=== PATIENT | female | born 1970 | race Caucasian/White ===

== ENCOUNTER 2017-10-01 13:59 | Outpatient (CLI) | payer OTHER ==
--- NOTE | 2017-10-01 16:25 | MMO ---
BILATERAL DIGITAL SCREENING MAMMOGRAMS: HISTORY: This 47-year-old female presents for digital screening mammography. COMPARISON: 06/04/16, 07/28/14, 07/01/13. This patient's mammogram was interpreted with the assistance of computer-aided detection. The breasts are heterogeneously dense, which can obscure small masses. No direct or indirect evidence of malignancy. IMPRESSION: BI-RADS category 1, negative. Continued routine screening. BIRADS 1: Negative Routine annual screening mammography (for women over age 40) POS: [facility]
== END 2017-10-01 14:00 | disposition home or self-care (01) ==
LOC: SCSMAMMO 13:59
PROVIDERS: ATTEND Obstetrics & Gynecology
DX: Z12.31 Encounter for screening mammogram for malignant neoplasm of breast (principal)
CPT/HCPCS: 77067

== ENCOUNTER 2017-12-09 11:35 | Emergency (ER) | payer OTHER ==
--- NOTE | 2017-12-09 13:47 | RAD ---
3 VIEWS LEFT SHOULDER: Date: 12/09/17 COMPARISON: None. HISTORY: Left shoulder pain, injury, trauma. FINDINGS: No widening of the AC or CC interspace. No fracture or dislocation. IMPRESSION: No acute findings. POS: [facility]
== END 2017-12-09 12:50 | disposition home or self-care (01) ==
LOC: ERS 11:35
DX: M25.512 Pain in left shoulder (principal); E05.90 Thyrotoxicosis, unspecified without thyrotoxic crisis or storm; F41.9 Anxiety disorder, unspecified; Z87.891 Personal history of nicotine dependence; X50.9XXA Other and unspecified overexertion or strenuous movements or postures, initial encounter

== ENCOUNTER 2018-04-29 09:53 | Day surgery (SDC) | payer OTHER ==
[2018-04-28 11:57] VITALS: BMI 25.0
[2018-04-29] MEDS ORDERED: Midazolam HCl 2 mg/2 ml Vial ONE (11:00)
[2018-04-29] MEDS ORDERED: Lidocaine 1% PF 5 ML VIAL ONE (16:48)
[2018-04-29] MEDS ORDERED: PROPOFOL 200 MG/20 ML VIAL ONE (16:48)
--- NOTE | 2018-04-30 14:31 | OP ---
DATE OF PROCEDURE: 04/29/2018 PROCEDURE: EGD with gastric biopsy. PREPROCEDURE DIAGNOSES: Globus sensation and vague dysphagia. POSTPROCEDURE DIAGNOSES: 1. Mild gastritis. 2. Normal esophagus empiric dilatation performed with 54-[employer] dilator. ANESTHESIA: TIVA. PROCEDURE IN DETAIL: Once the patient was sedated, a bite block was placed in esophageal orifice. T he endoscope was advanced through the esophagus, stomach, and then second and third portion of duoden um. The esophagus showed no signs of esophagitis, inflammation, or eosinophilic esophagitis. Empiri c dilatation was performed with [address]-[employer] dilator. Second look showed no effect. in t he stomach, esophagus, and duodenum, which appeared normal except for mild gastritis. Biopsies were obtained to rule out H. pylori. The retroflexed views were normal. The scope was removed. Th e patient tolerated the procedure well and there were no complications.
== END 2018-04-29 13:25 | disposition home or self-care (01) ==
LOC: SDC 09:53
PROVIDERS: ATTEND Internal Medicine Gastroenterology
PROC: 0DB68ZX Excision of Stomach, Via Natural or Artificial Opening Endoscopic, Diagnostic (ICD-10-PCS; principal; 2018-04-29)
PROC: 0D757ZZ Dilation of Esophagus, Via Natural or Artificial Opening (ICD-10-PCS; principal; 2018-04-29)
DX: K29.50 Unspecified chronic gastritis without bleeding (principal); R13.10 Dysphagia, unspecified; K21.9 Gastro-esophageal reflux disease without esophagitis; F41.9 Anxiety disorder, unspecified; E05.00 Thyrotoxicosis with diffuse goiter without thyrotoxic crisis or storm; D89.89 Other specified disorders involving the immune mechanism, not elsewhere classified; Z87.891 Personal history of nicotine dependence; Z79.899 Other long term (current) drug therapy; Z88.1 Allergy status to other antibiotic agents
CPT/HCPCS: 88305; 88312; J2001; J2250; J2704

== ENCOUNTER 2019-04-09 13:18 | Emergency (ER) | payer OTHER ==
[2019-04-09 14:10] LABS: #Basophils 0.1 thou/uL (0.0-0.2); #Eosinphils 0.1 thou/uL (0.0-0.7); #Monocytes 0.5 thou/uL (0.11-0.59); #Neutrophils 4.8 thou/uL (1.40-6.50); %Basophils 1.2 % (0.0-1.0); %Eosinophils 2.3 % (0.0-10.0); %Lymphocytes 15.1 % (21.0-51.0); %Monocytes 7.9 % (0.0-10.0); %Neutrophils 73.5 % (42.0-75.0); Hemoglobin 13.9 g/dL (12.0-16.0); Mean Corpuscular HGB CONC 32.3 g/dL (32.0-36.0); Mean Corpuscular Volume 89.7 fL (78.0-98.0); Mean Platelet Volume 7.2 fL (7.4-10.4); Platelet Count 246 thou/uL (130-400); RBC Distribution Width 12.5 % (11.5-14.5); Red Blood Cell (RBC) Count 4.78 mill/uL (4.20-5.40); White Blood Cell (WBC) Count 6.5 thou/uL (4.8-10.8)
[2019-04-09 14:23] LABS: ALT (SGPT) 16 U/L (8-55); AST (SGOT) 19 U/L (5-34); Albumin 4.1 g/dL (3.5-5.0); Alkaline Phosphatase 44 U/L (40-110); Anion Gap 13 mmol/L (10-20); BUN (Urea Nitrogen) 15 mg/dL (7.0-18.7); Bilirubin, Total 0.6 mg/dL (0.2-1.2); Calc. Creatinine Clearance 0 mL/min (70-130); Calcium 9.1 mg/dL (7.8-10.44); Carbon Dioxide 25 mmol/L (22-29); Chloride 107 mmol/L (98-107); Estimated GFR-MDRD 74; Globulin 2.6 g/dL (2.4-3.5); Glucose 96 mg/dL (70-105); Protein, Total 6.7 g/dL (6.0-8.3); Sodium 141 mmol/L (136-145)
== END 2019-04-09 15:02 | disposition home or self-care (01) ==
LOC: SCSER 13:18
DX: F43.9 Reaction to severe stress, unspecified (principal); R07.9 Chest pain, unspecified; E05.90 Thyrotoxicosis, unspecified without thyrotoxic crisis or storm; F41.9 Anxiety disorder, unspecified; Z87.891 Personal history of nicotine dependence
CPT/HCPCS: 36415; 80053; 82550; 84484; 85025; 93005

== ENCOUNTER 2019-10-19 08:55 | Outpatient (CLI) | payer OTHER ==
--- NOTE | 2019-10-19 09:16 | RAD ---
EXAM: Two views chest PROVIDED CLINICAL HISTORY: Dyspnea COMPARISON: 12/16/2015 FINDINGS: Cardiac silhouette and pulmonary vasculature are within normal limits. The lungs are clear. The osse ous structures have a normal appearance. Surgical clips overlie the right upper quadrant. Chest is stable compared to prior exam. IMPRESSION: No acute cardiopulmonary process.
== END 2019-10-19 08:56 | disposition home or self-care (01) ==
LOC: RAD 08:55
PROVIDERS: ATTEND Internal Medicine Critical Care Medicine
DX: R06.00 Dyspnea, unspecified (principal)
CPT/HCPCS: 36415; 71046; 80053; 84443; 85025

== ENCOUNTER 2020-08-29 23:58 | Emergency (ER) | payer OTHER ==
[2020-08-30 02:12] LABS: #Eosinphils 0.1 thou/uL (0.0-0.7); #Monocytes 0.7 thou/uL (0.11-0.59); #Neutrophils 5.1 thou/uL (1.40-6.50); %Basophils 0.5 % (0.0-1.0); %Eosinophils 1.7 % (0.0-10.0); %Lymphocytes 14.3 % (21.0-51.0); %Monocytes 9.9 % (0.0-10.0); %Neutrophils 73.5 % (42.0-75.0); Hemoglobin 12.8 g/dL (12.0-16.0); Mean Corpuscular HGB CONC 32.7 g/dL (32.0-36.0); Mean Corpuscular Hemoglobin 29.5 pg (27.0-31.0); Mean Corpuscular Volume 90.1 fL (78.0-98.0); Platelet Count 234 thou/uL (130-400); RBC Distribution Width 13.1 % (11.5-14.5); Red Blood Cell (RBC) Count 4.35 mill/uL (4.20-5.40)
[2020-08-30 02:34] LABS: ALT (SGPT) 12 U/L (8-55); AST (SGOT) 15 U/L (5-34); Albumin 3.9 g/dL (3.5-5.0); Alkaline Phosphatase 47 U/L (40-110); Anion Gap 14 mmol/L (10-20); BUN (Urea Nitrogen) 17 mg/dL (7.0-18.7); Bilirubin, Total 0.4 mg/dL (0.2-1.2); Calc. Creatinine Clearance 0 mL/min (70-130); Calcium 8.5 mg/dL (7.8-10.44); Carbon Dioxide 21 mmol/L (22-29); Chloride 109 mmol/L (98-107); Globulin 2.6 g/dL (2.4-3.5); Glucose 101 mg/dL (70-105); Potassium 3.9 mmol/L (3.5-5.1); Protein, Total 6.5 g/dL (6.0-8.3); Sodium 140 mmol/L (136-145)
[2020-08-30 03:00] LABS: Thyroid Stimulating Hormone 8.4508 uIU/mL (0.35-4.94)
[2020-08-30 05:33] LABS: Free T4 (Free Thyroxine) 0.93 ng/dL (0.70-1.48)
== END 2020-08-30 03:43 | disposition home or self-care (01) ==
LOC: ERS 23:58
DX: R00.2 Palpitations (principal); E03.9 Hypothyroidism, unspecified; R00.0 Tachycardia, unspecified; Z87.891 Personal history of nicotine dependence; Z79.82 Long term (current) use of aspirin; Z79.899 Other long term (current) drug therapy
CPT/HCPCS: 36415; 80053; 84439; 84443; 84484; 85025; 85379; 93005